=== PATIENT | male | born 1950 | race Caucasian/White ===

== ENCOUNTER → 2018-08-28 | Day surgery (SDC) | payer OTHER ==
[~2018-08-28] MED LIST: GABAPENTIN100 MG; TRAMADOL HCL100 M1
== END | disposition home or self-care (01) ==
LOC: ADM 08-23 11:00 → CIR.AMB 07:29
DX: M19.041 Primary osteoarthritis, right hand (principal)

== ENCOUNTER 2018-09-04 10:34 | Emergency (ER) | payer OTHER ==
[~2018-09-04] VITALS: Ht 172.7 cm; Wt 64.4 kg
[2018-09-04] MEDS ORDERED: TRAMADOL HCL100 M1 (11:01)
[2018-09-04] MEDS ORDERED: GABAPENTIN100 MG (11:02)
== END 2018-09-04 14:29 | disposition home or self-care (01) ==
LOC: ER 10:34
DX: Q70.01 Fused fingers, right hand (principal)